=== PATIENT | male | born 1945 | race Caucasian/White ===

== ENCOUNTER 2016-06-24 10:20 | Day surgery (SDC) | payer OTHER ==
[2016-06-20 11:34] VITALS: BMI 24.4
[~2016-06-24 10:20] MED LIST: HYDROmorphone 1 MG/ML 1 ML SYRINGE IVP PRN; LACTATED RINGERS 1,000 ML IV SCH; MIDAZOLAM 2 MG/2 ML VIAL IV PRN; ONDANSETRON 4 MG/2 ML VIAL IVP ONE; ceFAZolin 1,000 MG in SODIUM CHLORIDE 0.9% IRRIGATIO 250 ML IRRIGATION ONE; ceFAZolin 2 GM in SODIUM CHLORIDE 0.9% 100 ML IVPB ONE
[2016-06-24] MEDS: SODIUM CHLORIDE 0.9% 1,000 ML IV SCH ×2 (10:50→11:44)
[2016-06-24 10:58] LABS: Basophils # (A) 0.1 k/uL (0-0.2); Basophils % (A) 1 %; CH 34.1; CHCM 35.9; Eosinophils # (A) 0.3 k/uL (0-0.7); Eosinophils % (A) 4 %; HCT 39.1 % (39.0-53.0); HDW 2.67; HGB 13.7 gm/dL (13.0-17.5); Luc # (Auto) 0.11; Luc % (Auto) 2; Lymphocytes # (A) 1.3 k/uL (1.0-4.8); Lymphocytes % (A) 23 %; MCH 33.5 pg (25.0-35.0); MCHC 35.1 g/dL (31.0-37.0); MCV 95.4 fL (80.0-100.0); Mean Platelet Volume 7.6; Monocytes # (A) 0.3 k/uL (0-1.0); Monocytes % (A) 5 %; Neutrophils # (A) 3.7 k/uL (1.3-7.7); Neutrophils % (A) 65 %; RDW 12.6 % (11.5-15.5); WBC 5.7 k/uL (3.8-10.6); WBC (Perox) 5.65
[2016-06-24] MEDS ORDERED: fentaNYL (PF) 50 MCG/ML 2 ML AMP ONE (11:02)
[2016-06-24] MEDS ORDERED: MIDAZOLAM 2 MG/2 ML VIAL ONE (11:02)
[2016-06-24] MEDS ORDERED: diphenhydrAMINE 50 MG/ML 1 ML VIAL ONE (11:02)
[2016-06-24] MEDS ORDERED: PROPOFOL 10 MG/ML 20 ML VIAL IV ONE (11:02)
[2016-06-24] MEDS ORDERED: ePHEDrine 50 MG/ML 1 ML AMP ONE (11:02)
[2016-06-24 11:05] LABS: Calcium 9.6 mg/dL (8.4-10.2)
[2016-06-24] MEDS ORDERED: IV FLUID CONTINUATION 1,000 ML IV ONE (11:05)
[2016-06-24] MEDS ORDERED: SODIUM CHLORIDE 0.9% 500 ML IV ONE (11:10)
[2016-06-24] MEDS ORDERED: IODIXANOL 320 MG/ML 100 ML IV ONE (11:15)
[2016-06-24] MEDS ORDERED: LIDOCAINE 1% INJ 10MG/ML (20 ML MDV) SQ ONE (11:51)
[2016-06-24] MEDS ORDERED: ACETAMINOPHEN TAB 325 MG TAB PO PRN (12:26)
--- NOTE | 2016-06-24 12:38 | P.PCN ---
Date of Procedure: 06/24/16 Preoperative Diagnosis: HISTORY: This is a 71-year-old gentleman with history of ischemic heart disease and ischemic cardiomyopathy with severe LV dysfunction. Patient has been getting LifeVest and was seen by Dr. Bennett who recommended a permanent pacemaker implantation because of cardiomyopathy with ejection fraction less than 30%. This is being done as a primary prophylaxis measure. CONSENT:I have discussed the risks, benefits and alternative therapies for the above-mentioned procedure and for both sedation/analgesia as well as necessary blood product administration, if indicated, as they pertain to this patient. The patient has indicated understanding and acceptance of the risks and procedures discussed. SEDATION: This is provided by department of anesthesia. PROCEDURE: Patient was brought to the lab in a fasting state. Patient was prepped and draped in the usual fashion. Patient was given IV sedation with fentanyl and Versed. The skin below the left clavicle was infiltrated with lidocaine. An incision was made parallel to deltopectoral groove was deepened until the pectoral fascia was exposed. A pocket was created by blunt dissection and cautery. Axillary venography was performed to delineate the course of the axillary vein. 1 stick was performed into extrathoracic portion of the axillary vein and 1 sheath was advanced over the guidewires and left in subclavian vein. LEADS: VENTRICULAR: This is manufactured by [employer]. Model number is [id number] and the serial number is [id number]. THE DEVICE: This is manufactured by [employer]. Model number is [id number] and the serial number is [id number]. The ventricular lead is maneuvered l with help of a straight and curved stylets into the left ventricle apical region. Satisfactory position was obtained and threshold measurements were made. THRESHOLDS: VENTRICLE : The minimal patient threshold was 0. 7 V at a pulse width of 0.5 ms. The impedance is 493 ohms. R-wave: 8.4 mV. DFT TESTING: Ford were made to induce ventricular fibrillation with T shock and 50 Hz pacing. Brief and developed fibrillation was induced but was not sustained and defibrillator threshold could not be interrogated. The leads and pulse generator remained in the pocket after it was washed with antibiotics. Pocket was closed in the usual fashion. The fascia was closed with 2-0 Prolene ,the subcutaneous tissue was closed with 3-0 Prolene and the skin was closed with 4-0 Prolene. PROGRAMMING: JEROMY PROGRAMMING: MODE: VVI. RATE: 40 OUTPUT: ventricle: 3.5 V at pulse width of 0.5 ms. TACHYCARDIA THERAPY: VF zone: Programmed to a rate of 205 bpm. There appears programmed 41 J 8. VT zone: Programmed to a rate of 1 75 bpm. Therapies is programmed to 31 J 1 followed by 41 J 5. FINAL IMPRESSION: #1. Axillary venography #2. Single-chamber , single coil AICD implantation #3 Attempted DFT. COMPLICATIONS: Nil PLAN: Continue monitoring on the telemetry unit. Continue prophylactic antibiotics. Chest x-ray in the morning. If stable he'll be discharged home tomorrow. He will continue home medications. We'll hold Plavix and aspirin for 48 hours.
[2016-06-24] MEDS: ceFAZolin 2 GM in SODIUM CHLORIDE 0.9% 100 ML IVPB SCH ×2 (17:24→23:02)
[2016-06-24] MEDS: METOPROLOL TARTRATE 25 MG TAB PO SCH (20:25)
[2016-06-24] MEDS: HYDROcodone/APAP 5-325MG 1 EACH TAB PO PRN (20:26)
[2016-06-24] MEDS ORDERED: ATORVASTATIN 80 MG TAB PO SCH (21:00)
[2016-06-25 03:51] VITALS: TEMP 97.8
[2016-06-25] MEDS: ceFAZolin 2 GM in SODIUM CHLORIDE 0.9% 100 ML IVPB SCH ×2 (05:26→11:01)
[2016-06-25] MEDS: HYDROcodone/APAP 5-325MG 1 EACH TAB PO PRN (05:31)
[2016-06-25 07:49] VITALS: BP 140/70; PULSE 79; RESP 18
--- NOTE | 2016-06-25 08:21 | XR ---
EXAMINATION TYPE: XR chest 2V DATE OF EXAM: 06/25/2016 6:27 AM COMPARISON: NONE HISTORY: Lead placement check TECHNIQUE: Frontal and lateral views of the chest are obtained. FINDINGS: Patient is rotated. Generator is present in the left pectoral region, leads courses toward s the right atrium. No evident pneumothorax or pleural effusion. There are overlying cardiac leads. N ormal heart size. IMPRESSION: No evident complication status post intracardiac defibrillator.
[2016-06-25] MEDS: METOPROLOL TARTRATE 25 MG TAB PO SCH (08:41)
[2016-06-25] MEDS ORDERED: LISINOPRIL 10 MG TAB PO SCH (09:00)
[2016-06-25] MEDS ORDERED: SPIRONOLACTONE 25 MG TAB PO SCH (09:00)
--- NOTE | 2016-06-25 21:47 | P.DS ---
Providers Date of admission: 06/24/2016. Attending physician: Oscar Prince Primary care physician: Ankush Cain - Discharge Diagnosis(es) (1) Ischemic cardiomyopathy Status: Acute (2) Chronic CHF Status: Acute Hospital Course: This patient with history of ischemic heart disease, chronic congestive heart failure who was being followed by Dr. Bennett. This patient was being followed at the [facility] and apparently had a vest. Patient was referred for prophylactic AICD implantation. Patient had a single-chamber single coil AICD implantation yesterday. Patient tolerated the procedure well. He remained stable overnight. His incision site on the left clavicle is dry without evidence of hematoma. Patient has mild tenderness. Hemodynamically stable. Chest x-ray shows stable position of the lead. Patient is being discharged home today. No arrhythmias are detected. Patient thresholds have been stable. He will continue home medications and antibiotic for 3 days. Patient is given usual instructions. He is advised to keep the dressing dry until seen in the office. He is advised to keep the left arm low the shoulder level and also to avoid any heavy pushing pulling. Follow-up with Dr. Bennett in one week. Plan - Discharge Summary New Discharge Prescriptions: Cephalexin [Keflex] 500 mg PO Q8HR #10 cap HYDROcodone/APAP 5-325MG [[place] 5-325] 1 tab PO Q6HR PRN #10 tab PRN Reason: Chest Pain Discharge Medication List Aspirin [Adult Low Dose Aspirin EC] 81 mg PO DAILY 06/20/16 [History] Atorvastatin Calcium [Lipitor] 80 mg PO HS 06/20/16 [History] Clopidogrel [Plavix] 75 mg PO DAILY 06/20/16 [History] Enalapril Maleate [Vasotec] 2.5 mg PO BID 06/20/16 [History] Metoprolol Tartrate [Lopressor] 25 mg PO BID 06/20/16 [History] Spironolactone [Aldactone] 25 mg PO DAILY 06/20/16 [History] Cephalexin [Keflex] 500 mg PO Q8HR #10 cap 06/25/16 [Rx] HYDROcodone/APAP 5-325MG [[place] 5-325] 1 tab PO Q6HR PRN #10 tab 06/25/16 [Rx] Follow up Appointment(s)/Referral(s): Kapil Bennett MD [STAFF PHYSICIAN] - 07/02/16 2:00 pm (07/02 at 2:00 with Barbra in device clinic and 2:[address] Bennett ) Patient Instructions/Handouts: Implantable Cardioverter Defibrillator (GEN) Activity/Diet/Wound Care/Special Instructions: Do not remove dressing. Keep dressing clean and dry. No baths. You may shower and cover dressing with saran or cling wrap. Do not raise your left arm above heart level. No reaching, stretching, pulling, backscratching, or lifting more than 5lbs with left arm. No weightlifting, golfing, swinging an axe, etc with left arm. You may use your right arm freely. You may perform pendulum exercises to prevent frozen shoulder. Contact [facility] if you notice any bleeding, swelling, increased pain or drainage of cloudy fluid . Follow up in the office as scheduled. Discharge Disposition: HOME SELF-CARE
== END 2016-06-25 12:35 | disposition home or self-care (01) ==
LOC: CATHEP 10:20 → 3OBS 12:24 → CATHEP 06-25 12:35
PROVIDERS: ATTEND Internal Medicine Cardiovascular Disease
DX: Z00.6 Encounter for examination for normal comparison and control in clinical research program (principal); I25.10 Atherosclerotic heart disease of native coronary artery without angina pectoris; I25.5 Ischemic cardiomyopathy; I11.9 Hypertensive heart disease without heart failure; E78.2 Mixed hyperlipidemia; Z79.02 Long term (current) use of antithrombotics/antiplatelets; Z79.82 Long term (current) use of aspirin; Z79.899 Other long term (current) drug therapy
CPT/HCPCS: 33249; 80048; 85025; 71020; C1777; C1722; J2250; J1200; Q9967; J0690 ×3; J2001; J3010; J2704